=== PATIENT | female | born 2000 | race Caucasian/White ===

== ENCOUNTER → 2021-03-24 | Outpatient (REF) | LOC: M LABSMTC 09:02 | PROVIDERS: ATTEND Family Medicine | DX: Z20.822 Contact with and (suspected) exposure to COVID-19 (principal) ==

== ENCOUNTER 2021-10-07 01:57 | Emergency (ER) | payer BC, SELFPAY ==
[2021-10-07] MEDS ORDERED: DEPO150I IM (02:08)
[2021-10-07 03:31] LABS: HEMOGLOBIN 13.9 g/dl (12.0-15.5); MEAN CORPUSCULAR HEMOGLOBIN 30.8 pg (27.0-33.0); MEAN CORPUSCULAR HGB CONC 33.9 g/dl (32.0-36.5); MEAN CORPUSCULAR VOLUME 90.7 fl (80.0-96.0); PLATELET COUNT, AUTOMATED 264 10^3/uL (150-450); RED BLOOD COUNT 4.52 10^6/uL (4.00-5.40); WHITE BLOOD COUNT 5.8 10^3/uL (4.0-10.0)
[2021-10-07 04:04] LABS: ALT/SGPT 17 U/L (12-78); BILIRUBIN,TOTAL 0.3 MG/DL (0.2-1.0); BLOOD UREA NITROGEN 11 MG/DL (7-18); CALCIUM LEVEL 9.1 MG/DL (8.5-10.1); CARBON DIOXIDE LEVEL 28 MEQ/L (21-32); CHLORIDE LEVEL 106 MEQ/L (98-107); CREATININE FOR GFR 0.83 MG/DL (0.55-1.30); GLOMERULAR FILTRATION RATE > 60.0 (>60); GLUCOSE, FASTING 82 MG/DL (70-100); POTASSIUM SERUM 3.6 MEQ/L (3.5-5.1); SODIUM LEVEL 138 MEQ/L (136-145); TOTAL PROTEIN 7.1 GM/DL (6.4-8.2)
[2021-10-07 04:06] LABS: CK-MB VALUE MASS < 1.0 NG/ML (<3.6); CPK CREATINE PHOSPHOKINASE 76 U/L (26-192); MB/CK RELATIVE INDEX 1.32 (< OR =4)
[2021-10-07 04:08] LABS: HCG, SERUM QUALITATIVE NEGATIVE (NEGATIVE)
[2021-10-07] MEDS ORDERED: MECLIZINE 25 MG TABLET PO ONE (05:40)
[2021-10-07] MEDS ORDERED: ACETAMINOPHEN TAB 650MG DOSE (2X325MG) PO ONE (05:50)
[2021-10-07 07:16] VITALS: BP 123/77
[2021-10-07] MEDS ORDERED: ISOVUE-370 76% 100ML VIAL As Ordered ONE (07:25)
== END 2021-10-07 09:08 | disposition home or self-care (01) ==
LOC: M ED 01:57
DX: R55 Syncope and collapse (principal); Z79.3 Long term (current) use of hormonal contraceptives
CPT/HCPCS: 36415; 70450; 70496; 70498; 80053; 82550; 82553; 84443; 84484; 84703; 85027; 85379; 93005; 99285; Q9967